=== PATIENT | male | born 1935 | race Caucasian/White ===

== ENCOUNTER → 2016-12-06 | Outpatient (CLI) | payer MEDICARE ==
[~2016-12-06] MED LIST: ALEN70TA3 PO; ALPR0.25 PO; ASPI-621 PO; ATOR40TA PO; CARV3.1212 PO; CEFT1FRO2 IV; ENAL2.5T32 PO; FAMO-79 PO; LEVO750T26 PO; TICA90TA PO; ZOLP-413 PO
== END | disposition home or self-care (01) ==
LOC: CFH 10:33
PROVIDERS: ATTEND Internal Medicine Cardiovascular Disease
DX: I08.3 Combined rheumatic disorders of mitral, aortic and tricuspid valves (principal); I25.2 Old myocardial infarction; Z98.61 Coronary angioplasty status
CPT/HCPCS: 93306

== ENCOUNTER 2017-02-22 04:57 | Emergency (ER) | payer MEDICARE ==
[~2017-02-22] VITALS: Ht 177.8 cm; Wt 58.3 kg
[2017-02-22 04:58] VITALS: BP 117/69
== END 2017-02-22 06:25 | disposition home or self-care (01) ==
LOC: ED 05:24
DX: K06.8 Other specified disorders of gingiva and edentulous alveolar ridge (principal)
CPT/HCPCS: 99281

== ENCOUNTER 2018-01-18 08:03 | Emergency (ER) | payer MEDICARE ==
[~2018-01-18] VITALS: Ht 175.3 cm; Wt 59.2 kg
[2018-01-18] MEDS ORDERED: SODIUM CHLORIDE FLUSH 10ML SYR IVF ONE (08:30)
[2018-01-18 08:39] LABS: MICROSCOPIC NOT IND
[2018-01-18 08:49] LABS: CULTURE INDICATED? NO
[2018-01-18 08:50] LABS: BASOPHILS % (AUTO) 0 % (0-1); EOSINOPHILS # (AUTO) 0.06 x10^3/uL (0-0.4); EOSINOPHILS % (AUTO) 1 % (1-7); LYMPHOCYTES % (AUTO) 20 % (22-44); MD NO; MEAN CORPUSCULAR HGB CONC 33.6 g/dL (33.2-36.2); MEAN CORPUSCULAR VOLUME 98.2 fL (81-97); MEAN PLATELET VOLUME 8.8 fL (7.4-10.4); MONOCYTES # (AUTO) 0.52 x10^3/uL (0.2-0.8); MONOCYTES % (AUTO) 10 % (2-9); NEUTROPHILS # (AUTO) 3.72 x10^3/uL (1.8-6.8); NEUTROPHILS % (AUTO) 69 % (42-75); PLATELET COUNT 161 x10^3/uL (130-400); RED BLOOD COUNT 4.72 x10^6/uL (4.38-5.82); RED CELL DISTRIBUTION WIDTH 13.4 % (9.4-14.8)
[2018-01-18 09:01] LABS: ALANINE AMINOTRANSFERASE 28 U/L (12-78); ALBUMIN 3.5 g/dL (3.4-5.0); ANION GAP 5 mmol/L (5-15); CALCIUM 8.6 mg/dL (8.5-10.1); CHLORIDE 108 mmol/L (98-107); CREATININE 1.22 mg/dL (0.7-1.3)
[2018-01-18 09:03] LABS: ALKALINE PHOSPHATASE 59 U/L (45-117); TOTAL PROTEIN 6.9 g/dL (6.4-8.2)
[2018-01-18 09:27] VITALS: BP 104/64
[2018-01-18] MEDS ORDERED: OMNIPAQUE 350 MG/ML, 100ML BOTTLE ONE (10:19)
[2018-01-18] MEDS ORDERED: METRONIDAZOLE PMX 500MG/100ML 100 ML ONE (11:04)
[2018-01-18] MEDS ORDERED: CIPROFLOXACIN 500 MG TABLET ONE (11:05)
[2018-01-18] MEDS ORDERED: ONDANSETRON 2MG/ML, 2ML ONE (11:14)
[2018-01-18] MEDS ORDERED: ONDANSETRON 2MG/ML, 2ML IVPush ONE (11:30)
[2018-01-18] MEDS ORDERED: CIPROFLOXACIN 500 MG TABLET PO ONE (11:30)
[2018-01-18] MEDS ORDERED: METRONIDAZOLE PMX 500MG/100ML 100 ML IVPB ONE (11:30)
== END 2018-01-18 12:11 | disposition home or self-care (01) ==
LOC: ED 09:53
DX: K57.32 Diverticulitis of large intestine without perforation or abscess without bleeding (principal); I25.2 Old myocardial infarction
CPT/HCPCS: 36415; 74177; 76700; 80053; 81003; 83605; 83690; 85025; 93005; 96365; 96375; 99285; J2405; Q9967

== ENCOUNTER → 2018-10-21 | Outpatient (CLI) | payer MEDICARE ==
[~2018-10-21] MED LIST changes: -ASPI-621 PO; +ASPI81TA45 PO
[2018-10-21 13:08] LABS: ALBUMIN 4.1 g/dL (3.4-5.0); ANION GAP 4 mmol/L (5-15); CHLORIDE 107 mmol/L (98-107)
[2018-10-21 13:12] LABS: ALANINE AMINOTRANSFERASE 31 U/L (12-78); ALKALINE PHOSPHATASE 66 U/L (45-117); BILIRUBIN,TOTAL 2.1 mg/dL (0.2-1.0); CHOLESTEROL, TOTAL 112 mg/dL (140-239); HDL CHOL % 51 % (26-37); HDL CHOLESTEROL (DIRECT) 57 mg/dL (40-60); LDL CHOLESTEROL,CALCULATED 47 mg/dL (54-169); LDL/HDL RATIO 0.8 (0.5-3.0); TOTAL PROTEIN 7.5 g/dL (6.4-8.2); TRIGLYCERIDES 38 mg/dL (50-200); VLDL CHOLESTEROL 8 mg/dL (0-25)
== END | disposition home or self-care (01) ==
LOC: CFH 08:11
PROVIDERS: ATTEND Internal Medicine Cardiovascular Disease
DX: I25.9 Chronic ischemic heart disease, unspecified (principal); I21.09 ST elevation (STEMI) myocardial infarction involving other coronary artery of anterior wall; E78.2 Mixed hyperlipidemia; E55.9 Vitamin D deficiency, unspecified; Z95.5 Presence of coronary angioplasty implant and graft
CPT/HCPCS: 36415; 78452; 80053; 80061; 82306; 93017; A9502

== ENCOUNTER 2019-06-22 05:46 | Observation (INO) | payer MEDICARE ==
[~2019-06-22] VITALS: Ht 175.3 cm; Wt 60.1 kg
--- NOTE | 2019-06-22 06:17 | NUR ---
PT FROM TRIAGE WITH C/O EPI GASTRIC PAIN WITH HX OF WI, IN NAD AT THIS TIME, PLACED ON ALL MONITORSPIV PLACED AND LABS DREWN AT THIS TIME
[2019-06-22] MEDS ORDERED: FAMOTIDINE 20 MG/2 ML ONE (06:28)
[2019-06-22] MEDS ORDERED: SODIUM CHLORIDE FLUSH 10ML SYR IVF ONE (06:30)
[2019-06-22] MEDS ORDERED: MAALOX/HYOSCYAMINE/LIDOCAINE 45 ML BTL PO ONE (06:30)
[2019-06-22] MEDS ORDERED: FAMOTIDINE 20 MG/2 ML IV ONE (06:30)
[2019-06-22 06:45] LABS: BASOPHILS # (AUTO) 0.01 x10^3/uL (0-0.1); BASOPHILS % (AUTO) 0 % (0-1); EOSINOPHILS # (AUTO) 0.11 x10^3/uL (0-0.4); EOSINOPHILS % (AUTO) 2 % (1-7); LYMPHOCYTES # (AUTO) 1.76 x10^3/uL (1-3.4); LYMPHOCYTES % (AUTO) 34 % (22-44); MD NO; MEAN CORPUSCULAR HEMOGLOBIN 33.7 pg (27.5-34.5); MEAN CORPUSCULAR HGB CONC 33.1 g/dL (33.2-36.2); MEAN PLATELET VOLUME 9.1 fL (7.4-10.4); MONOCYTES # (AUTO) 0.58 x10^3/uL (0.2-0.8); MONOCYTES % (AUTO) 11 % (2-9); NEUTROPHILS # (AUTO) 2.65 x10^3/uL (1.8-6.8); NEUTROPHILS % (AUTO) 52 % (42-75); PLATELET COUNT 156 x10^3/uL (130-400); RED BLOOD COUNT 4.64 x10^6/uL (4.38-5.82); RED CELL DISTRIBUTION WIDTH 13.5 % (9.4-14.8)
--- NOTE | 2019-06-22 06:51 | NUR ---
RECEIVED REPORT FROM SHAUNA RAMOS. PT LYING IN [facility] COMFORTABLY WHILE AWAITING DISPO
[2019-06-22 06:58] LABS: ALANINE AMINOTRANSFERASE 32 U/L (12-78); ALBUMIN 3.6 g/dL (3.4-5.0); ANION GAP 5 mmol/L (5-15); CALCIUM 8.7 mg/dL (8.5-10.1); CHLORIDE 109 mmol/L (98-107); CREATININE 1.26 mg/dL (0.7-1.3)
[2019-06-22 07:02] LABS: ALKALINE PHOSPHATASE 61 U/L (45-117); BILIRUBIN,TOTAL 1.5 mg/dL (0.2-1.0); TROPONIN I < 0.015 ng/mL (0.000-0.045)
[2019-06-22 07:25] LABS: MICROSCOPIC NOT IND
[2019-06-22 07:28] LABS: CULTURE INDICATED? NO
--- NOTE | 2019-06-22 07:30 | NUR ---
PT C/O PRESSURE TYPE ABDOMINAL PAIN WITH A LITTLE IMPROVEMENT WITH MED GIVEN NOTED ON MAR
--- NOTE | 2019-06-22 08:09 | NUR ---
ULTRASOUND AT BEDSIDE
--- NOTE | 2019-06-22 09:09 | NUR ---
AMBULATED TO BATHROOM WITHOUT ASSISTANCE, STEADY GAIT
[2019-06-22] MEDS ORDERED: FAMO-79 PO (09:12)
[2019-06-22] MEDS ORDERED: ALPR0.25 PO (09:13)
[2019-06-22] MEDS ORDERED: CLOP75TA52 PO (09:13)
[2019-06-22] MEDS ORDERED: ASPIRIN 81 MG TABLET CHEW ONE ×2 (10:58→11:01)
[2019-06-22] MEDS: ASPIRIN 81 MG TABLET CHEW PO ONE ×2 (11:01→11:09)
--- NOTE | 2019-06-22 11:09 | NUR ---
REPORT TO CARMINE. APONTE TO BE TRANSPORTED TO THE FLOOR
[2019-06-22 13:40] VITALS: BP 99/62
[2019-06-22] MEDS ORDERED: NITROGLYCERIN 0.4 MG BOTTLE (25 TABS) SL PRN (14:30)
[2019-06-22] MEDS ORDERED: LABETALOL 5MG/ML, 20ML IVPush PRN (14:30)
[2019-06-22] MEDS ORDERED: NITROGLYCERIN 0.4 MG/SPRAY SL PRN (14:30)
[2019-06-22] MEDS ORDERED: ONDANSETRON ODT 4 MG PO PRN (14:30)
[2019-06-22] MEDS ORDERED: hydrALAzine 20 MG/ML, 1ML IVPush PRN (14:30)
[2019-06-22 15:09] LABS: CHOLESTEROL, TOTAL 123 mg/dL (140-239); TRIGLYCERIDES 44 mg/dL (50-200); VLDL CHOLESTEROL 9 mg/dL (0-25)
[2019-06-22 15:12] LABS: CHOL/HDL RATIO 2.2; HDL CHOL % 46 % (26-37); HDL CHOLESTEROL (DIRECT) 56 mg/dL (40-60); LDL CHOLESTEROL,CALCULATED 58 mg/dL (54-169); TROPONIN I < 0.015 ng/mL (0.000-0.045)
[2019-06-22] MEDS: MAALOX/HYOSCYAMINE/LIDOCAINE 45 ML BTL PO PRN (17:30)
[2019-06-22] MEDS: ENOXAPARIN 40 MG/0.4 ML SQ SCH (17:31)
[2019-06-22 19:17] LABS: TROPONIN I < 0.015 ng/mL (0.000-0.045)
[2019-06-22] MEDS: SODIUM CHLORIDE FLUSH 10ML SYR IVF SCH (20:39)
[2019-06-22] MEDS ORDERED: ATORVASTATIN 40 MG TABLET PO SCH (21:00)
[2019-06-22] MEDS ORDERED: ZOLPIDEM 5MG TABLET PO SCH (21:00)
[2019-06-22 21:30] VITALS: BP 104/60
[2019-06-22 23:40] VITALS: BP 93/57
[2019-06-23] MEDS ORDERED: ASPIRIN 325 MG TABLET EC PO SCH (06:00)
[2019-06-23] MEDS ORDERED: PANTOPROZOLE 40MG TABLET PO SCH (07:30)
[2019-06-23 08:20] LABS: BASOPHILS # (AUTO) 0.04 x10^3/uL (0-0.1); BASOPHILS % (AUTO) 1 % (0-1); EOSINOPHILS # (AUTO) 0.07 x10^3/uL (0-0.4); EOSINOPHILS % (AUTO) 1 % (1-7); LYMPHOCYTES # (AUTO) 1.25 x10^3/uL (1-3.4); LYMPHOCYTES % (AUTO) 24 % (22-44); MD NO; MEAN CORPUSCULAR HEMOGLOBIN 33.1 pg (27.5-34.5); MEAN CORPUSCULAR HGB CONC 33.3 g/dL (33.2-36.2); MEAN CORPUSCULAR VOLUME 99.2 fL (81-97); MEAN PLATELET VOLUME 8.6 fL (7.4-10.4); MONOCYTES % (AUTO) 11 % (2-9); NEUTROPHILS # (AUTO) 3.35 x10^3/uL (1.8-6.8); NEUTROPHILS % (AUTO) 63 % (42-75); PLATELET COUNT 154 x10^3/uL (130-400); RED BLOOD COUNT 4.67 x10^6/uL (4.38-5.82); RED CELL DISTRIBUTION WIDTH 13.1 % (9.4-14.8)
[2019-06-23 08:30] LABS: ALANINE AMINOTRANSFERASE 28 U/L (12-78); ALBUMIN 3.5 g/dL (3.4-5.0); ANION GAP 3 mmol/L (5-15); CALCIUM 8.8 mg/dL (8.5-10.1); CHLORIDE 108 mmol/L (98-107); CREATININE 1.29 mg/dL (0.7-1.3)
[2019-06-23 08:40] LABS: ALKALINE PHOSPHATASE 52 U/L (45-117); BILIRUBIN,TOTAL 1.8 mg/dL (0.2-1.0); TOTAL PROTEIN 6.9 g/dL (6.4-8.2)
[2019-06-23 09:00] VITALS: BP 101/58
[2019-06-23] MEDS ORDERED: CLOPIDOGREL 75 MG TABLET PO SCH (09:00)
[2019-06-23] MEDS: SODIUM CHLORIDE FLUSH 10ML SYR IVF SCH (09:02)
[2019-06-23] MEDS: MAALOX/HYOSCYAMINE/LIDOCAINE 45 ML BTL PO PRN (12:31)
[2019-06-23] MEDS: ENOXAPARIN 40 MG/0.4 ML SQ SCH (14:30)
[2019-06-23] MEDS ORDERED: Maalox/Hyoscyamine/Lidocaine PO (15:39)
[2019-06-23] MEDS ORDERED: PANT40TA5 PO (15:39)
== END 2019-06-23 16:34 | disposition home or self-care (01) ==
LOC: ED 10:15 → EDIP 11:40 → INTOOBSV 11:40 → 5SO 12:00
PROVIDERS: ADMIT Internal Medicine; ATTEND Internal Medicine
DX: R07.89 Other chest pain (principal); I25.2 Old myocardial infarction; I25.10 Atherosclerotic heart disease of native coronary artery without angina pectoris; K21.9 Gastro-esophageal reflux disease without esophagitis; Z79.82 Long term (current) use of aspirin; Z85.46 Personal history of malignant neoplasm of prostate; Z79.899 Other long term (current) drug therapy
CPT/HCPCS: 36415; 71045; 76700; 80053; 80061; 81003; 83690; 83735; 84100; 84443; 84484; 85025; 93005; 93306; 96372; 96374; 99284; G0378; J1650; J3490

== ENCOUNTER 2021-02-27 10:59 | Outpatient (CLI) | payer MEDICARE ==
[~2021-02-27 10:59] MED LIST changes: +CLOP75TA52 PO; +Maalox/Hyoscyamine/Lidocaine PO; +PANT40TA6 PO
== END 2021-02-27 23:59 | disposition home or self-care (01) ==
LOC: CFH 10:59
PROVIDERS: ATTEND Internal Medicine Cardiovascular Disease
DX: I08.8 Other rheumatic multiple valve diseases (principal)
CPT/HCPCS: 93306; 93356